=== PATIENT | female | born 1945 | race Caucasian/White ===

== ENCOUNTER 2017-12-21 09:51 | Day surgery (SDC) | payer MEDICARE, BC ==
[2017-12-19 11:09] LABS: BASOPHILS # (AUTO) 0.09 x10^3/uL (0-0.1); BASOPHILS % (AUTO) 2 % (0-1); EOSINOPHILS # (AUTO) 0.14 x10^3/uL (0-0.4); EOSINOPHILS % (AUTO) 2 % (1-7); LYMPHOCYTES # (AUTO) 2.68 x10^3/uL (1-3.4); LYMPHOCYTES % (AUTO) 43 % (22-44); MD NO; MEAN CORPUSCULAR HGB CONC 32.6 g/dL (32.4-35.8); MEAN CORPUSCULAR VOLUME 89.1 fL (80-100); MEAN PLATELET VOLUME 8.4 fL (7.4-10.4); MONOCYTES # (AUTO) 0.71 x10^3/uL (0.2-0.8); MONOCYTES % (AUTO) 11 % (2-9); NEUTROPHILS % (AUTO) 42 % (42-75); PLATELET COUNT 268 x10^3/uL (130-400); RED BLOOD COUNT 5.06 x10^6/uL (3.82-5.3); RED CELL DISTRIBUTION WIDTH 15.4 % (9.6-15.2)
[2017-12-19 11:14] LABS: INTERNATIONAL NORMALIZED RATIO 0.95 (0.93-1.1); PROTHROMBIN TIME 9.9 Seconds (9.6-11.5)
[2017-12-19 11:20] LABS: ALBUMIN 3.8 g/dL (3.4-5.0); ANION GAP 10 mmol/L (5-15); CALCIUM 8.9 mg/dL (8.5-10.1); CHLORIDE 111 mmol/L (98-107)
[2017-12-19 11:31] LABS: ALANINE AMINOTRANSFERASE 23 U/L (12-78); ALKALINE PHOSPHATASE 90 U/L (45-117); BILIRUBIN,TOTAL 0.3 mg/dL (0.2-1.0); CREATININE 0.93 mg/dL (0.55-1.02); TOTAL PROTEIN 7.7 g/dL (6.4-8.2)
[~2017-12-21] VITALS: Ht 157.5 cm; Wt 91.3 kg
[~2017-12-21 09:51] MED LIST: ACET-1600 PO; ALBU6.7H INH; BUSP30TA PO; FLUT9.9S NS; LISI40TA PO; MIRT45TA4 PO; NIFE60TA13 PO; OMEP-110 PO
[2017-12-21 10:16] VITALS: BP 123/80
[2017-12-21] MEDS ORDERED: LACTATED RINGERS 1,000 ML IV SCH (10:20)
[2017-12-21] MEDS ORDERED: LIDOCAINE-MPF 1%, 2ML INFIL ONE (10:30)
[2017-12-21] MEDS ORDERED: MIDAZOLAM 1 MG/ML, 2ML ONE (11:07)
[2017-12-21] MEDS ORDERED: FENTANYL PF 100 MCG/2ML ONE (11:07)
[2017-12-21] MEDS ORDERED: BUPIVACAINE/PF 0.5% ONE (11:10)
[2017-12-21] MEDS ORDERED: EPINEPHRINE 1 MG/ML, 1ML ONE (11:10)
[2017-12-21] MEDS ORDERED: HEPARIN 1,000 UNITS/ML, 10ML ONE (11:10)
[2017-12-21] MEDS ORDERED: CEFAZOLIN 1,000 MG ONE (11:31)
[2017-12-21] MEDS ORDERED: KETOROLAC 30 MG/1 ML ONE (11:31)
[2017-12-21] MEDS ORDERED: PROPOFOL 10 MG/ML, 20ML ONE (11:31)
[2017-12-21] MEDS ORDERED: DEXAMETHASONE 4 MG/ML, 1ML ONE (11:31)
[2017-12-21] MEDS ORDERED: HYDROcodone/APAP 7.5-325MG/15ML UDC PO PRN (12:00)
[2017-12-21] MEDS ORDERED: FENTANYL PF 100 MCG/2ML IV PRN (12:00)
[2017-12-21] MEDS ORDERED: morphine SULFATE 10 MG/ML, 1ML IV PRN (12:00)
[2017-12-21] MEDS ORDERED: hydrALAzine 20 MG/ML, 1ML IV PRN (12:00)
[2017-12-21] MEDS ORDERED: MIDAZOLAM 1 MG/ML, 2ML IV PRN (12:00)
[2017-12-21] MEDS ORDERED: DIAZEPAM 5 MG/ML, 2ML IVPush PRN (12:00)
[2017-12-21] MEDS ORDERED: LABETALOL 5MG/ML, 20ML IV PRN (12:00)
[2017-12-21] MEDS ORDERED: EPHEDRINE 50 MG/ML, 1ML IVPush PRN (12:00)
[2017-12-21] MEDS ORDERED: ALBUTEROL SULFATE 2.5 MG/3 ML NPPB PRN (12:00)
[2017-12-21] MEDS ORDERED: ACETAMINOPHEN 325 MG TABLET PO PRN (12:00)
[2017-12-21] MEDS ORDERED: ONDANSETRON 2MG/ML, 2ML IVPush PRN (12:00)
[2017-12-21] MEDS ORDERED: OXYcodone 5 MG/5 ML ORAL.SOL UDC PO PRN (12:00)
[2017-12-21] MEDS ORDERED: PROMETHAZINE 25 MG/ML, 1ML IV PRN (12:00)
[2017-12-21] MEDS ORDERED: PROMETHAZINE 12.5 MG SUPP PR PRN (12:00)
[2017-12-21] MEDS ORDERED: METOPROLOL 1 MG/ML, 5ML IV PRN (12:00)
[2017-12-21] MEDS ORDERED: OXYcodone 5 MG/5 ML ORAL.SOL UDC ONE (12:51)
[2017-12-21] MEDS ORDERED: ACETAMINOPHEN 650 MG/20.3 ML UDC ONE (12:51)
== END 2017-12-21 16:30 | disposition home or self-care (01) ==
LOC: OUT 09:51
PROVIDERS: ATTEND Surgery
DX: Z45.2 Encounter for adjustment and management of vascular access device (principal); C50.912 Malignant neoplasm of unspecified site of left female breast; F41.9 Anxiety disorder, unspecified; J45.909 Unspecified asthma, uncomplicated; F32.9 Major depressive disorder, single episode, unspecified; K21.9 Gastro-esophageal reflux disease without esophagitis; I10 Essential (primary) hypertension; D72.819 Decreased white blood cell count, unspecified; Z87.39 Personal history of other diseases of the musculoskeletal system and connective tissue; E66.9 Obesity, unspecified; Z90.49 Acquired absence of other specified parts of digestive tract; Z98.890 Other specified postprocedural states; Z90.710 Acquired absence of both cervix and uterus
CPT/HCPCS: 36415; 36561; 71045; 77001; 80053; 85025; 85610; 93005; C1788; J0171; J0690; J1100; J1644; J1885; J2250; J2704; J3010; J3490; J7120

== ENCOUNTER → 2018-04-18 | Outpatient (CLI) | payer MEDICARE, BC ==
[2018-04-18 15:13] LABS: BASOPHILS # (AUTO) 0.03 x10^3/uL (0-0.1); BASOPHILS % (AUTO) 1 % (0-1); EOSINOPHILS # (AUTO) 0.05 x10^3/uL (0-0.4); EOSINOPHILS % (AUTO) 1 % (1-7); LYMPHOCYTES # (AUTO) 1.58 x10^3/uL (1-3.4); LYMPHOCYTES % (AUTO) 37 % (22-44); MD NO; MEAN CORPUSCULAR HEMOGLOBIN 33.7 pg (27.0-34.8); MEAN CORPUSCULAR HGB CONC 34.2 g/dL (32.4-35.8); MEAN CORPUSCULAR VOLUME 98.4 fL (80-100); MEAN PLATELET VOLUME 6.3 fL (7.4-10.4); MONOCYTES # (AUTO) 0.57 x10^3/uL (0.2-0.8); MONOCYTES % (AUTO) 13 % (2-9); NEUTROPHILS # (AUTO) 2.09 x10^3/uL (1.8-6.8); NEUTROPHILS % (AUTO) 48 % (42-75); PLATELET COUNT 321 x10^3/uL (130-400); RED BLOOD COUNT 3.45 x10^6/uL (3.82-5.3); RED CELL DISTRIBUTION WIDTH 19.3 % (9.6-15.2)
[2018-04-18 15:25] LABS: ALANINE AMINOTRANSFERASE 24 U/L (12-78); ALBUMIN 3.5 g/dL (3.4-5.0); ANION GAP 8 mmol/L (5-15); CALCIUM 9.1 mg/dL (8.5-10.1); CHLORIDE 108 mmol/L (98-107); CREATININE 0.82 mg/dL (0.55-1.02)
[2018-04-18 15:28] LABS: ALKALINE PHOSPHATASE 76 U/L (45-117); BILIRUBIN,TOTAL 0.4 mg/dL (0.2-1.0); TOTAL PROTEIN 6.8 g/dL (6.4-8.2)
[2018-04-18 15:45] LABS: INTERNATIONAL NORMALIZED RATIO 0.99 (0.93-1.1); PROTHROMBIN TIME 10.2 Seconds (9.6-11.5)
== END | disposition home or self-care (01) ==
LOC: STARSUM 14:14
PROVIDERS: ATTEND Surgery
DX: Z01.818 Encounter for other preprocedural examination (principal)
CPT/HCPCS: 36415; 80053; 85025; 85610; 93005

== ENCOUNTER 2020-07-21 12:48 | Emergency (ER) | payer MEDICARE, BC ==
[~2020-07-21] VITALS: Ht 154.9 cm; Wt 69.0 kg
[~2020-07-21 12:48] MED LIST changes: -ALBU6.7H INH; +ALBU6.7H8 INH; +BUPR-173 PO; +CHOL500045 PO; +CITA10TA8 PO; +HYDR-3240 PO; -MIRT45TA4 PO; +MIRT45TA61 PO; +RISP1TAB90 PO; +RISP2TAB80 PO; +SERT100T32 PO; +TRAZ50TA66 PO
[2020-07-21 13:16] VITALS: BP 136/80
--- NOTE | 2020-07-21 13:19 | NUR ---
DIONISIO RICCI from home-Pt reports she took 40-50 tabs of 220mg Naproxen and 20-30 tabs of melatonin last night at approximately 0300 in an attempt to kill herself. Pt reports she was an inpatient at [facility] unit and was discharged on Monday last week. Pt reports "I keep hearing a voice telling me to hurt myself, I'm just tired of hearing it." Pt cooperative with staff, placed in gown, positioned for comfort in bed. Room is secured, sitter within eyesight. Pt's daughter at bedside, supportive.
[2020-07-21 14:32] LABS: ALBUMIN 3.5 g/dL (3.4-5.0); ANION GAP 5 mmol/L (5-15); CALCIUM 8.7 mg/dL (8.5-10.1); CHLORIDE 109 mmol/L (98-107); CREATININE 0.74 mg/dL (0.55-1.02)
[2020-07-21 14:37] LABS: SALICYLATE LEVEL < 1.7 mg/dL (2.8-20.0)
[2020-07-21 14:39] LABS: BASOPHILS % (AUTO) 1 % (0-1); EOSINOPHILS % (AUTO) 1 % (1-7); LYMPHOCYTES % (AUTO) 31 % (22-44); MEAN CORPUSCULAR HEMOGLOBIN 31.8 pg (27.0-34.8); MEAN CORPUSCULAR HGB CONC 33.4 g/dL (32.4-35.8); MEAN PLATELET VOLUME 8.5 fL (7.4-10.4); MONOCYTES % (AUTO) 12 % (2-9); NEUTROPHILS % (AUTO) 56 % (42-75); PLATELET COUNT 194 x10^3/uL (130-400); RED BLOOD COUNT 4.31 x10^6/uL (3.82-5.3); RED CELL DISTRIBUTION WIDTH 14.9 % (9.6-15.2)
[2020-07-21 14:45] LABS: MD NO
--- NOTE | 2020-07-21 14:49 | NUR ---
SONALI LAKHANI IN TO EVAL PT. PT TO REMAIN LH
--- NOTE | 2020-07-21 17:30 | NUR ---
ATTEMPT X1 TO CALL REPORT
--- NOTE | 2020-07-21 18:14 | NUR ---
REPORT CALLED TO RECIEVING RN. AWAITING TRANSPORT
--- NOTE | 2020-07-21 18:59 | NUR ---
BEDSIDE REPORT FROM JOSEPH GREGORY, PT CARE TRANSFERRED AT THIS TIME. NAD, SITTING UP ON GURNEY, APPEARS COMFORTABLE, EVEN AND UNLABORED RESPIRATIONS, PROVIDED NONSKID SOCKS FOR COMFORT, AMBULATED TO AND FROM RESTROOM WITH X1 ASSISTANCE, SI PRECAUTIONS IN PLACE, SITTER IN LINE OF SIGHT. WCTM. PT TO BE TRANSFERRED TO TO FLOOR.
== END 2020-07-21 18:59 | disposition other institution (70) ==
LOC: ED 14:17
DX: T39.312A Poisoning by propionic acid derivatives, intentional self-harm, initial encounter (principal); R00.1 Bradycardia, unspecified; Y92.89 Other specified places as the place of occurrence of the external cause
CPT/HCPCS: 36415; 80048; 80299; 80320; 80329; 82040; 85025; 87426; 93005; 99284; G0480